=== PATIENT | male | born 1965 | race Caucasian/White ===

== ENCOUNTER 2023-02-26 12:57 | Emergency (ER) | payer MEDICARE, MEDICAID, SELFPAY ==
[2023-02-26 13:06] VITALS: BP 121/68; PULSE 71; RESP 18; TEMP 36.9; O2SAT 96; BMI 31.9
--- NOTE | 2023-02-26 13:24 | ED.GENADULT ---
HPI - General Adult General Chief complaint: Skin/Abscess/Foreign Body Stated complaint: left leg cellulitis Time Seen by Provider: 02/26/23 13:06 History of Present Illness HPI narrative: This 58-year-old male has cellulitis of his left lower extremity. He was seen in urgent care yesterday and received an injection of an antibiotic, presumably Rocephin. He was also started on Keflex which she has been taking according to instructions. He states that he feels about the same. He has erythema in his left lower extremity about a [address] down from his knee and extending out to his foot. He states that he had an injury to the great toe of this foot and thinks that this is where the infection started. There is a line with a marker drawn around the edge of the erythema. He comes in today because there is a small portion on the anterior aspect of his leg that the erythema has extended beyond the line. Related Data Home Medications Medication Instructions Recorded Confirmed apixaban 5 mg tablet (Eliquis) 5 mg PO BID 02/26/23 02/26/23 cephalexin 500 mg capsule 500 mg PO QID 02/26/23 02/26/23 gabapentin 600 mg tablet 600 mg PO 3XD 02/26/23 02/26/23 hydrocortisone 20 mg tablet mg PO 02/26/23 levothyroxine 137 mcg tablet 137 mcg PO QAM 02/26/23 02/26/23 metoprolol succinate 25 mg 12.5 mg PO DAILY 02/26/23 02/26/23 tablet,extended release 24 hr oxycodone 30 mg tablet,crush 30 mg PO Q12H 02/26/23 02/26/23 resistant,extended release 12 hr (OxyContin) testosterone cypionate 200 mg/mL 200 mg IM Q2W 02/26/23 02/26/23 intramuscular oil Allergies Allergy/AdvReac Type Severity Reaction Status Date / Time codeine Allergy Verified 02/26/23 13:10 Review of Systems Status of ROS: Reports: 10 or more systems reviewed and unremarkable except as noted in History and below Narrative: Constitutional: No fevers, no weight gain or loss. Eyes: No discharge. No vision changes. HENT: No congestion, no sore throat, no ear pain. Cardiovascular: No chest pain, no palpitations. Respiratory: No shortness of breath, no wheezes, no cough. Gastrointestinal: No abdominal pain, no vomiting, no diarrhea. Genitourinary: No dysuria, no hematuria. Musculoskeletal: Normal range of motion. Skin: No rashes, no pruritis. Neurological: No dizziness, weakness, sensory change, speech change. Endo/Heme/Allergies: No bruising or bleeding. No polydipsia. Pysch: no suicidality, no anxiety, no insomnia. All other systems reviewed and are negative. Exam Narrative: Exam Narrative: Constitutional: Well-developed, well-nourished, no acute distress. HEENT: Normocephalic, atraumatic. Neck: Normal range of motion. Nontender. Supple. Heart: Regular. No murmurs. Normal rate. Intact distal pulses. Lungs: Clear to auscultation. No chest discomfort. No wheezes, rhonchi, or rales. Abdomen: Normal bowel sounds. Nontender. No rebound tenderness. Genitalia: Deferred. Back: No midline tenderness. Normal range of motion. Extremities: Normal range of motion. No injury. Erythema with mild swelling and increased warmth typical of cellulitis involving the left lower extremity extending from about a [address] below the knee toward the ankle out to the end of his foot. Skin: Intact. No rash. Warm. No erythema or pallor. Neurologic: No altered sensation. No weakness. Alert and oriented. Psychiatric: No suicidality. No anxiety or depression. No insomnia. Nursing notes and vitals signs are reviewed. Const: Vital Signs, click to edit/add: Vital Signs - 24 hr 02/26/23 13:06 Temperature 98.4 F Pulse Rate [Right Pulse Oximeter] 71 Respiratory Rate 18 Blood Pressure [Ri ght Upper Arm] 121/68 Pulse Oximetry 96 Oxygen Delivery Me thod Room Air Course Vital Signs Vital signs: Initial Vital Signs Temperature 98.4 F 02/26/23 13:06 Temperature Source Temporal Artery Scan 02/26/23 13:06 Pulse Rate 71 02/26/23 13:06 Respiratory Rate 18 02/26/23 13:06 Blood Pressure 121/68 02/26/23 13:06 Blood Pressure Mean 85 02/26/23 13:06 Blood Pressure Position Sitting 02/26/23 13:06 Pulse Oximetry 96 02/26/23 13:06 Oxygen Delivery Method Room Air 02/26/23 13:06 Vital Signs Temperature 98.4 F 02/26/23 13:06 Pulse Rate 71 02/26/23 13:06 Respiratory Rate 18 02/26/23 13:06 Blood Pressure 121/68 02/26/23 13:06 Pulse Oximetry 96 02/26/23 13:06 Oxygen Delivery Method Room Air 02/26/23 13:06 Temperature 98.4 F 02/26/23 13:06 Pulse Rate 71 02/26/23 13:06 Respiratory Rate 18 02/26/23 13:06 Blood Pressure 121/68 02/26/23 13:06 Pulse Oximetry 96 02/26/23 13:06 Oxygen Delivery Method Room Air 02/26/23 13:06 Medical Decision Making MDM Narrative Medical decision making narrative: This patient has a cellulitis of left lower extremity and was treated with an injectable antibiotic followed by Keflex. He arrives with normal vital signs but presents with concern that there is a small area where there are erythema as extended beyond the line that was drawn. He does not have any significant progression of symptoms and there is no streaking of erythema up into his leg. He does not have any fever. I explained that the erythema is his body's reaction to the infection and often times will progress a bit for a day or 2 after treatment is started. It appears that he is on appropriate medications and has reassuring vital signs and exam otherwise. I did describe signs and symptoms that would indicate a need for return and re-evaluation. Discharge Plan Discharge Clinical Impression: Cellulitis Patient Disposition: Home, Self-Care Condition: Stable Additional Instructions: Continue current plans. Follow up with MD or return if worsening symptoms happen. Prescriptions: No Action levothyroxine 137 mcg tablet 137 mcg PO QAM gabapentin 600 mg tablet 600 mg PO 3XD cephalexin 500 mg capsule 500 mg PO QID hydrocortisone 20 mg tablet PO metoprolol succinate 25 mg tablet extended release 24 hr 12.5 mg PO DAILY testosterone cypionate 200 mg/mL oil 200 mg IM Q2W Eliquis 5 mg tablet 5 mg PO BID oxycodone [OxyContin] 30 mg tablet,oral only,ext.rel.12 hr 30 mg PO Q12H Follow Up/Referrals: Taj Larry MD [Primary Care Provider] - Stand Alone Forms: [employer] Info Instructions
== END 2023-02-26 13:41 | disposition home or self-care (01) ==
LOC: ED 13:35
PROVIDERS: Emergency Provider Emergency Medicine Emergency Medical Services; PCP Family Medicine
DX: L03.116 Cellulitis of left lower limb (principal)
CPT/HCPCS: 99283; 99284